=== PATIENT | male | born 1970 | race African-American/Black ===

== ENCOUNTER 2020-08-16 15:18 | Emergency (ER) | payer SELFPAY ==
[2020-08-16 16:05] LABS: Absolute Lymphocytes (CBC) 1.7 K/uL (0.7-4.9); Basophils % 0.7 % (0-1.3); Hematocrit 44.8 % (39.6-49.0); MPV 10.7 fL (7.6-11.3); RBC Red Blood Cell Count 4.87 M/uL (4.33-5.43)
[2020-08-16] MEDS ORDERED: MORPHINE 4 MG/ML SYR ONE (16:11)
[2020-08-16] MEDS ORDERED: ONDANSETRON 4 MG/2 ML VIAL ONE (16:12)
[2020-08-16 16:19] LABS: Protime INR 0.92
[2020-08-16 16:33] LABS: Potassium 4.1 mmol/L (3.5-5.1)
[2020-08-16] MEDS ORDERED: TETANUS & DIPHTHERIA TOX,ADULT 0.5 ML VIAL ONE (17:05)
--- NOTE | 2020-08-16 17:17 | RAD REPORT ---
EXAM DESCRIPTION: RAD - Foot Right 3 View - 08/16/2020 4:19 pm CLINICAL HISTORY: Right foot pain status post injury FINDINGS: No fracture or dislocation is seen Laceration involves dorsal aspect of forefoot. Air is present throughout the soft tissue.
--- NOTE | 2020-08-16 17:26 | ER ---
Nurse's Notes [facility] Name: Galdino Guerrero Age: 50 yrs Sex: Male : 1970 Arrival Date: 08/16/2020 Time: 15:21 Bed 24 Private MD: Diagnosis: High pressure injection injury to right foot Presentation: 08/16 15:29 Chief complaint: Patient states: Was pressure washing this morning and hit R foot, went ph through shoe and into foot, bleeding currently controlled, injury occurred at approx 1030. Coronavirus screen: Client denies travel out of the [place] in the last 14 days. At this time, the client does not indicate any symptoms associated with coronavirus-19. Ebola Screen: No symptoms or risks identified at this time. Initial Sepsis Screen: Does the patient meet any 2 criteria? No. Patient's initial sepsis screen is negative. Does the patient have a suspected source of infection? No. Patient's initial sepsis screen is negative. Risk Assessment: Do you want to hurt yourself or someone else? Patient reports no desire to harm self or others. Onset of symptoms was August 16, 2020. 15:29 Method Of Arrival: Wheelchair ph 15:29 Acuity: JOE 2 ph Historical: - Allergies: 15:32 No Known Allergies; ph - PMHx: 15:32 Asthma; Hypertension; ph 15:32 Diabetes - NIDDM; ph - Immunization history:: Client reports having NOT received the Covid vaccine. Last tetanus immunization: unknown, Flu vaccine is not up to date. - Family history:: not pertinent. - Social history:: Smoking status: Patient reports the use of cigarette tobacco products, smokes one pack cigarettes per day. - Hospitalizations: : No recent hospitalization is reported. Screenin:40 Abuse screen: Denies threats or abuse. Denies injuries from another. Nutritional ca1 screening: No deficits noted. Tuberculosis screening: No symptoms or risk factors identified. Fall Risk IV access (20 points). Assessment: 15:40 General: Appears in no apparent distress. uncomfortable, Behavior is calm, cooperative, ca1 appropriate for age. Pain: Complains of pain in right foot Pain currently is 9 out of 10 on a pain scale. Neuro: Level of Consciousness is awake, alert, obeys commands, Oriented to person, place, time, situation. Cardiovascular: Reports since he has HPN but have not taken his antiHPN meds for a while now Heart tones S1 S2 present Capillary refill < 3 seconds. Respiratory: Reports shortness of breath since 3 days [employer] Airway is patent Respiratory effort is even, unlabored, Respiratory pattern is regular, symmetrical, Breath sounds with wheezes bilaterally. Derm: Skin is intact, is healthy with good turgor, Skin is pink, warm \T\ dry. Derm: Musculoskeletal: Circulation, motion, and sensation intact. Capillary refill < 3 seconds, Swelling present in right foot. Injury Description: Abrasion sustained to dorsum of right foot is dirty, was sustained 6-12 hours ago. 16:40 Reassessment: Patient appears in no apparent distress at this time. Patient and/or ca1 family updated on plan of care and expected duration. Pain level reassessed. Patient is alert, oriented x 3, equal unlabored respirations, skin warm/dry/pink. Reassessment: Report called to Karen Avelar RN at [facility]. 17:41 Reassessment: Patient appears in no apparent distress at this time. Patient and/or ca1 family updated on plan of care and expected duration. Pain level reassessed. Patient is alert, oriented x 3, equal unlabored respirations, skin warm/dry/pink. 18:45 Reassessment: Patient appears in no apparent distress at this time. Patient and/or ca1 family updated on plan of care and expected duration. Pain level reassessed. Patient is alert, oriented x 3, equal unlabored respirations, skin warm/dry/pink. 19:33 Reassessment: Patient appears in no apparent distress at this time. Patient is alert, ca1 oriented x 3, equal unlabored respirations, skin warm/dry/pink. Vital Signs: 15:29 BP 179 / 139; Pulse 123; Resp 18; Temp 98.7; Pulse Ox 100% on R/A; Weight 102.06 kg; ph Height 5 ft. 9 in. (175.26 cm); 16:11 BP 168 / 133; Pulse 108; Resp 20 S; Pulse Ox 100% on 2 lpm NC; ca1 17:10 BP 178 / 135; Pulse 100; Resp 16 S; Pulse Ox 99% on 2 lpm NC; ca1 18:07 BP 157 / 114; Pulse 51; Resp 16 S; Pulse Ox 100% on R/A; ca1 19:15 BP 145 / 112; Pulse 60; Resp 18 S; Pulse Ox 98% on R/A; ca1 15:29 Body Mass Index 33.23 (102.06 kg, 175.26 cm) ph ED Course: 15:21 Patient arrived in ED. ds1 15:31 Triage completed. ph 15:32 Arm band placed on Patient placed in an exam room. ph 15:35 Arik Encarnacion MD is Attending Physician. rn 15:40 Patient has correct armband on for positive identification. Bed in low position. Call ca1 light in reach. Side rails up X2. Pulse ox on. NIBP on. Warm blanket given. 15:48 Deena Walters, MOO is Primary Nurse. ap3 15:50 Deena Walters RN is Primary Nurse. ap3 16:00 Initial lab(s) drawn, by me, sent to lab. Inserted saline lock: 18 gauge in right ca1 antecubital area, using aseptic technique. Blood collected. 16:11 Wound care: to abrasion, located on dorsum of right foot was cleaned with Hibiclens, ca1 Patient tolerated well. 16:19 XRAY Foot RIGHT 3 View In Process Unspecified. EDMS 17:04 Lower Extremity W/ Cont In Process Unspecified. EDMS 19:34 No provider procedures requiring assistance completed. Patient transferred, IV remains ca1 in place. 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 Exp: ca1 08/14/2021. Lot #: [id number]. } Route: IM; Site: right deltoid; 17:13 Follow up: Response: No adverse reaction ca1 17:26 Drug: Zosyn (piperacillin-tazobactam) 3.375 grams Route: IVPB; Infused Over: 60 mins; ca1 Site: right antecubital; 18:24 Follow up: Response: No adverse reaction; IV Status: Completed infusion; IV Intake: ca1 100ml 18:58 Drug: cloNIDine 0.2 mg Route: PO; ca1 19:36 Follow up: Response: No adverse reaction; Blood pressure is lowered ca1 Intake: 18:24 IV: 100ml; Total: 100ml. ca1 Outcome: 17:26 ER care complete, transfer ordered by . rn 19:35 Transferred by ground EMS to [facility], Transfer form completed. X-rays sent ca1 w/ patient. 19:35 Condition: stable 19:35 Instructed on the need for transfer. 19:37 Patient left the ED. ca1 Signatures: Dispatcher [employer] EDMS Yas Haywood ds1 Arik Encarnacion MD MD rn Hall, Patricia, RN RN ph Prokisch, Amanda, RN RN ap3 Tanisha Amin RN RN ca1 Corrections: (The following items were deleted from the chart) 16:28 15:40 Musculoskeletal: Circulation, motion, and sensation intact. Capillary refill < 3 ca1 seconds, ca1 18:08 15:40 Cardiovascular: Heart tones S1 S2 present Capillary refill < 3 seconds ca1 ca1 19:33 19:31 Reassessment: Patient appears in no apparent distress at this time. Patient ca1 and/or family updated on plan of care and expected duration. Pain level reassessed. Patient is alert, oriented x 3, equal unlabored respirations, skin warm/dry/pink. ca1 19:35 15:30 Inserted saline lock: 18 gauge in right antecubital area, using aseptic ca1 technique. Blood collected. ca1 19:35 15:30 Initial lab(s) drawn, by me, sent to lab. ca1 ca1
--- NOTE | 2020-08-16 17:26 | EDPHYS ---
Physician Documentation [facility] Name: Galdino Guerrero Age: 50 yrs Sex: Male : 1970 Arrival Date: 08/16/2020 Time: 15:21 Bed 24 Private MD: ED Physician Arik Encarnacion HPI: 08/16 16:00 This 50 yrs old Black Male presents to ER via Wheelchair with complaints of Foot Injury.rn 16:00 The patient presents with an injury, pain. The complaints affect the right foot. Onset: rn The symptoms/episode began/occurred 6 hour(s) ago. Modifying factors: The symptoms are alleviated by elevation of extremity, the symptoms are aggravated by weight bearing, movement. Severity of symptoms: At their worst the symptoms were moderate, in the emergency department the symptoms are unchanged. The patient has not experienced similar symptoms in the past. 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 + mild swelling to foot. No pain to ankle or proximal leg. + diabetic. . Historical: - Allergies: 15:32 No Known Allergies; ph - PMHx: 15:32 Asthma; Hypertension; ph 15:32 Diabetes - NIDDM; ph - Immunization history:: Client reports having NOT received the Covid vaccine. Last tetanus immunization: unknown, Flu vaccine is not up to date. - Family history:: not pertinent. - Social history:: Smoking status: Patient reports the use of cigarette tobacco products, smokes one pack cigarettes per day. - Hospitalizations: : No recent hospitalization is reported. ROS: 16:00 Constitutional: Negative for fever, chills, and weight loss, Eyes: Negative for injury, rn pain, redness, and discharge, Neck: Negative for injury, pain, and swelling, Cardiovascular: Negative for chest pain, palpitations, and edema, Respiratory: Negative for shortness of breath, cough, wheezing, and pleuritic chest pain, Abdomen/GI: Negative for abdominal pain, nausea, vomiting, diarrhea, and constipation, Back: Negative for injury and pain, MS/Extremity: + swelling and pain to right foot Skin: + small puncture/laceration dorsum right mid foot Neuro: Negative for headache, weakness, numbness, tingling, and seizure. Exam: 16:00 Constitutional: This is a well developed, well nourished patient who is awake, alert, rn appears uncomfortable Head/Face: Normocephalic, atraumatic. Cardiovascular: Tachycardic, regular rhythm. No pulse deficits. Respiratory: No increased work of breathing, no retractions or nasal flaring. Skin: Warm, dry, small 1 cm irregular laceration dorsum of right mid-foot, no active bleeding, 2+ DP pulse, no ecchymosis MS/ Extremity: Pulses equal, no cyanosis. Neurovascular intact. Full, normal range of motion. + mild swelling immediately near open wound, no fluctuance or swelling of toes/rest of foot. Neuro: Awake and alert Vital Signs: 15:29 BP 179 / 139; Pulse 123; Resp 18; Temp 98.7; Pulse Ox 100% on R/A; Weight 102.06 kg; ph Height 5 ft. 9 in. (175.26 cm); 16:11 BP 168 / 133; Pulse 108; Resp 20 S; Pulse Ox 100% on 2 lpm NC; ca1 17:10 BP 178 / 135; Pulse 100; Resp 16 S; Pulse Ox 99% on 2 lpm NC; ca1 18:07 BP 157 / 114; Pulse 51; Resp 16 S; Pulse Ox 100% on R/A; ca1 19:15 BP 145 / 112; Pulse 60; Resp 18 S; Pulse Ox 98% on R/A; ca1 15:29 Body Mass Index 33.23 (102.06 kg, 175.26 cm) ph MDM: 15:35 Patient medically screened. rn 17:12 ED course: Consulted with Dr. Reyes, unable to consult on this patient in hospital, rn recommends emergent transfer to [place] given high risk with high pressure injury and diabetic.. 17:24 Differential diagnosis: fracture, penetrating trauma, high-pressure injection injury. rn Data reviewed: vital signs, nurses notes, radiologic studies, CT scan, plain films, and as a result, I will admit patient. Counseling: I had a detailed discussion with the patient and/or guardian regarding: the historical points, exam findings, and any diagnostic results supporting the discharge/admit diagnosis, radiology results, the need to transfer to another facility, for higher level of care, [facility] does not immediately have the required specialist. Response to treatment: the patient's symptoms have mildly improved after treatment, and as a result, I will admit patient. 17:28 ED course: Accepted without consult by [facility]. . rn 08/16 15:43 Order name: CBC with Diff; Complete Time: 16:40 rn 08/16 15:43 Order name: Basic Metabolic Panel; Complete Time: 16:40 rn 08/16 15:43 Order name: Protime (+inr); Complete Time: 16:40 rn 08/16 15:43 Order name: Ptt, Activated; Complete Time: 16:40 rn 08/16 15:43 Order name: XRAY Foot RIGHT 3 View; Complete Time: 17:26 rn 08/16 15:43 Order name: IV Start; Complete Time: 15:50 rn 08/16 15:45 Order name: Lower Extremity W/ Cont; Complete Time: 18:06 EDMS 08/16 15:44 Order name: Wound Care; Complete Time: 16:15 rn 08/16 17:13 Order name: NPO; Complete Time: 17:18 rn Administered Medications: 15:54 Drug: morphine 4 mg Route: IVP; Site: right antecubital; ap3 16:48 Follow up: Response: No adverse reaction; Pain is decreased; RASS: Alert and Calm (0) ca1 15:54 Drug: Zofran (Ondansetron) 4 mg Route: IVP; Site: right antecubital; ap3 16:48 Follow up: Response: No adverse reaction; Nausea is decreased ca1 16:47 Drug: Tetanus-Diphtheria Toxoid Adult 0.5 ml {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 Exp: ca1 08/14/2021. Lot #: [id number]. } Route: IM; Site: right deltoid; 17:13 Follow up: Response: No adverse reaction ca1 17:26 Drug: Zosyn (piperacillin-tazobactam) 3.375 grams Route: IVPB; Infused Over: 60 mins; ca1 Site: right antecubital; 18:24 Follow up: Response: No adverse reaction; IV Status: Completed infusion; IV Intake: ca1 100ml 18:58 Drug: cloNIDine 0.2 mg Route: PO; ca1 19:36 Follow up: Response: No adverse reaction; Blood pressure is lowered ca1 Disposition: 08/16/20 17:26 Transfer ordered to [facility]. Diagnosis is High pressure injection injury to right foot. - Reason for transfer: Higher level of care. - Accepting physician is . - Condition is Stable. - Problem is new. - Symptoms have improved. Signatures: Dispatcher [employer] EDMS Arik Encarnacion MD MD rn Leatha Ferris RN RN ph Deena Walters, RN RN ap3 Acob, Tanisha RN RN ca1 Corrections: (The following items were deleted from the chart) 18:54 18:54 CORONAVIRUS ordered. EDVA EDVA 19:37 17:26 08/16/2020 17:26 Transfer ordered to [facility]. Diagnosis is High ca1 pressure injection injury to right foot. Reason for transfer: Higher level of care. Accepting physician is . Condition is Stable. Problem is new. Symptoms have improved. rn
[2020-08-16] MEDS ORDERED: PIPER/TAZO/NS 3.375gm 3.375 GM/100 ML BAG ONE (17:35)
--- NOTE | 2020-08-16 17:55 | RAD REPORT ---
EXAM DESCRIPTION: CT - Lower Extremity W/ Cont - 08/16/2020 5:04 pm CLINICAL HISTORY: Leg/foot injury COMPARISON: August 16, 2020 x-ray TECHNIQUE: Computed axial tomography was obtained from the knee to the foot with coronal and sagitta l reconstruction All CT scans are performed using dose optimization technique as appropriate and may include automated exposure control or mA/KV adjustment according to patient size. FINDINGS: Mild lateral subluxation of the patella probably chronic. A laceration involves the dorsal soft tissues of the forefoot with air throughout soft tissue. No fracture or dislocation seen 2 centimeters hematoma suspected within the dorsal soft tissues of the forefoot Evaluation for tendon injury is limited on CAT scan IMPRESSION: A laceration involves the dorsal soft tissues of the forefoot with air throughout soft t issue. No fracture or dislocation seen
[2020-08-16] MEDS ORDERED: cloNIDine HCL 0.1 MG TAB ONE (19:16)
[2020-08-16 19:47] VITALS: TEMP 98.7
[2020-08-16 19:53] VITALS: BP 145/112; O2SAT 98
== END 2020-08-16 19:37 | disposition short-term general hospital (02) ==
LOC: ER 15:18
DX: T70.4XXA Effects of high-pressure fluids, initial encounter (principal); S91.301A Unspecified open wound, right foot, initial encounter; Y93.89 Activity, other specified; Z20.822 Contact with and (suspected) exposure to COVID-19; Z23 Encounter for immunization; I10 Essential (primary) hypertension; F17.210 Nicotine dependence, cigarettes, uncomplicated
CPT/HCPCS: 36415; 73701; 80048; 85025; 85610; 85730; 90471; 90714; 96365; 96375; 99285; J2405; J2543; Q9967; U0003